=== PATIENT | female | born 1990 | race African-American/Black ===

== ENCOUNTER 2017-03-04 13:47 | Emergency (ER) | payer SELFPAY ==
[2017-03-04] MEDS ORDERED: PREDNISONE 20 MG TABLET PO ONE (15:02)
[2017-03-04] MEDS ORDERED: IPRATROPIUM/ALBUTEROL 0.5-2.5 MG/3 ML AMPUL NEB ONE (15:02)
--- NOTE | 2017-03-04 15:08 | ER Document Report ---
ED Respiratory Problem - General Chief Complaint: Shortness Of Breath Stated Complaint: DIFFICULTY BREATHING Time seen by provider: 15:03 Mode of Arrival: Ambulatory Information source: Patient Notes: 26-year-old female presents to ED for shortness of breath lungs feel tight. She has a history of asthma. Last menstrual period was 02/21/2017 TRAVEL OUTSIDE OF THE [place] IN LAST 30 DAYS: No - HPI Patient complains to provider of: Asthma, Cough, Short of breath Onset: Yesterday Duration: Continuous Initiating Event: URI Quality of pain: Achy Severity: Mild Pain Level: 2 Context: Hx asthma Cough: Nonproductive Sputum amount: None Associated symptoms: Congestion, Cough, PND, Runny nose. denies: Wheezing Similar symptoms previously: Yes Recently seen / treated by doctor: No - Related Data Allergies/Adverse Reactions: Shellfish * [Shellfish] Allergy (Intermediate, Verified 03/04/17 14:05) swelling Past Medical History - General Information source: Patient - Social History Smoking Status: Never Smoker Cigarette use (# per day): No Chew tobacco use (# tins/day): No Smoking Education Provided: No Frequency of alcohol use: None Drug Abuse: None Occupation: call center Lives with: Parents Family History: Arthritis, Hypertension, Malignancy Patient has suicidal ideation: No Patient has homicidal ideation: No Pulmonary Medical History: Reports: Hx Asthma, Hx Bronchitis, Hx Pneumonia EENT Medical History: Reports: None Neurological Medical History: Reports: Hx Migraine Endocrine Medical History: Reports: None Renal/ Medical History: Reports: None Malignancy Medical History: Reports: None GI Medical History: Reports: None Musculoskeltal Medical History: Reports None Skin Medical History: Reports Hx Eczema Psychiatric Medical History: Reports: None Traumatic Medical History: Reports: None Infectious Medical History: Reports: None Past Surgical History: Reports: Hx Oral Surgery - wisdom teeth - Immunizations Immunizations up to date: No Hx Diphtheria, Pertussis, Tetanus Vaccination: No Review of Systems - Review of Systems Constitutional: Recent illness EENT: Nose discharge, Sinus discharge Cardiovascular: No symptoms reported Respiratory: Cough, Short of breath, Wheezing, Other - States feels tight Gastrointestinal: No symptoms reported Genitourinary: No symptoms reported Female Genitourinary: No symptoms reported Musculoskeletal: No symptoms reported Skin: No symptoms reported Hematologic/Lymphatic: No symptoms reported Neurological/Psychological: No symptoms reported -: Yes All other systems reviewed and negative Physical Exam - Vital signs Vitals: Temp Pulse Resp BP Pulse Ox 98.4 F 76 16 120/86 H 98 03/04/17 14:05 03/04/17 14:05 03/04/17 14:05 03/04/17 14:05 03/04/17 14:05 Interpretation: Normal - General General appearance: Appears well, Alert - HEENT Head: Normocephalic, Atraumatic Eyes: Normal Pupils: PERRL Ears: Normal External canal: Normal Tympanic membrane: Normal Sinus: Normal Nasal: Swelling, Clear rhinorrhea Mouth/Lips: Normal Mucous membranes: Normal Pharynx: Normal Neck: Normal - Respiratory Respiratory status: No respiratory distress Chest status: Nontender Breath sounds: Normal, Nonproductive cough. No: Wheezing Chest palpation: Normal - Cardiovascular Rhythm: Regular Heart sounds: Normal auscultation Murmur: No - Abdominal Inspection: Normal Distension: No distension Bowel sounds: Normal Tenderness: Nontender Organomegaly: No organomegaly - Back Back: Normal, Nontender - Extremities General upper extremity: Normal inspection, Nontender, Normal color, Normal ROM , Normal temperature General lower extremity: Normal inspection, Nontender, Normal color, Normal ROM , Normal temperature, Normal weight bearing. No: Alexander's sign - Neurological Neuro grossly intact: Yes Cognition: Normal Orientation: AAOx4 [place] Coma Scale Eye Opening: Spontaneous [place] Coma Scale Verbal: Oriented Jazlyn Coma Scale Motor: Obeys Commands [place] Coma Scale Total: 15 Speech: Normal Motor strength normal: LUE, RUE, LLE, RLE Sensory: Normal - Psychological Associated symptoms: Normal affect, Normal mood - Skin Skin Temperature: Warm Skin Moisture: Dry Skin Color: Normal Course - Re-evaluation Re-evalutation: 03/04/17 23:22 Patient is states she felt much better after her breathing treatments and steroids patient was discharged home with prescription for steroids. - Vital Signs Vital signs: Temp Pulse Resp BP Pulse Ox 98.4 F 88 19 138/75 H 98 03/04/17 14:05 03/04/17 16:29 03/04/17 16:29 03/04/17 16:29 03/04/17 16:29 - Diagnostic Test Radiology reviewed: Image reviewed, Reports reviewed Discharge - Discharge Clinical Impression: Asthma exacerbation Condition: Stable Disposition: HOME, SELF-CARE Instructions: Family Physicians / Practices Additional Instructions: ASTHMA: You have been diagnosed as having asthma. This is a condition where there is episodic tightness in the bronchial tubes. Allergies, infections, and polluted or cold air may be contributing factors. Emergency treatment of a severe asthma attack may include adrenaline shots , or bronchodilator aerosol. You may feel lightheaded, have a decreased exercise tolerance and a rapid pulse for an hour or two. Rest and get plenty of fluids. Home treatment of asthma requires bronchodilator drugs. These can be administered by injection, inhalation, or by mouth. Antibiotics and corticosteroids may be required for some patients. You should avoid chemical fumes, dusts, pollens, and exercising in very cold or dry air. If you smoke, stop!! If you develop a fever, increased wheezing, chest pain, or severe shortness of breath, you should contact the doctor immediately. STEROID MEDICATION: You have been given an injection of or oral medicine of the cortisone/ steroid class. This medication is used to control inflammation or allergy. Piero t is usually only given for a short period of time, until the acute process subsides. There are usually no side effects from short-term use of cortisone-like medications. Some persons feel an increased sense of well-being and are not sleepy at bedtime. Long-term use of cortisone medications is best avoided, unless required for a severe condition. If your condition does not remit, or relapses after the course of corticosteroid medication, you should consult your physician. INHALED BRONCHODILATORS: You have received treatment(s) of and/or prescription for an inhaled bronchodilator -- a medication which stimulates the airways in the lung to dilate. This improves the flow of air in asthma, bronchitis, and emphysema. These medicines have some similarity to adrenaline, and can cause similar side effects: shakiness, racing heart, and a sense of nervousness. These side effects decrease with time. Contact your doctor if these side effects are severe. Do not over-use the medicine. Too-frequent use of the inhaler may make it ineffective. Call your doctor if the inhaler is not controlling your symptoms at the prescribed doses. USE OF ACETAMINOPHEN (Tylenol): Acetaminophen may be taken for pain relief or fever control. It's much safer than aspirin, offering a wider range of "safe" dosages. It is safe during . Some brand names are Tylenol, Panadol, Datril, Anacin 3, Tempra, and Liquiprin. Acetaminophen can be repeated every four hours. The following are maximum recommended dosages: WEIGHT Dose Drops Elixir Chewable( 80mg) (LBS.) drprs=droppers tsp=teaspoon 6 40 mg 0.4 ml (1/2) 6-11 80 mg 0.8 ml (full) tsp 1 tab 12-16 120 mg 1 1/2 drprs 3/4 tsp 1 1/2 tabs 17-23 160 mg 2 drprs 1 tsp 2 tabs 24-30 240 mg 3 drprs 1 1/2 tsp 3 tabs 30-35 320 mg 2 tsp 4 tabs 36-41 360 mg 2 1/4 tsp 4 1/2 tabs 42-47 400 mg 2 1/2 tsp 5 tabs 48-53 480 mg 3 tsp 6 tabs 54-59 520 mg 3 1/4 tsp 6 1/2 tabs 60-64 560 mg 3 1/2 tsp 7 tabs 65-70 600 mg 3 3/4 tsp 7 1/2 tabs 71-76 640 mg 4 tsp 8 tabs 77-82 720 mg 4 1/2 tsp 9 tabs 83-88 800 mg 5 tsp 10 tabs >89 pounds or adults 650 mg to 900 mg Acetaminophen can be repeated every four hours. Maximum dose not to exceed 4000 mg a day. These maximum recommended dosages are slightly higher than the dosages written on the product container, but these dosages are very safe and below the toxic dosage for acetaminophen. FOLLOW-UP CARE: If you have been referred to a physician for follow-up care, call the physician s office for an appointment as you were instructed or within the next two days. If you experience worsening or a significant change in your symptoms, notify the physician immediately or return to the Emergency Department at any time for re-evaluation. Prescriptions: Albuterol Sulfate [Proair HFA Inhalation Aerosol 8.5 gm MDI] 2 puff IH Q4H PRN # 1 mdi PRN Reason: Prednisone [Deltasone 20 mg Tablet] 2 tab PO DAILY 3 Days Forms: Elevated Blood Pressure, Return to Work Referrals: [facility] [Provider Group] - Follow up as needed
[2017-03-04 16:30] VITALS: BP 138/75
== END 2017-03-04 16:29 | disposition home or self-care (01) ==
LOC: ER 13:47
DX: J45.901 Unspecified asthma with (acute) exacerbation (principal); R06.02 Shortness of breath; R05 Cough; J34.89 Other specified disorders of nose and nasal sinuses; Z91.013 Allergy to seafood; Z87.01 Personal history of pneumonia (recurrent)
CPT/HCPCS: 94640; 99284; 71020; J7512; J7620

== ENCOUNTER 2017-06-05 11:42 | Emergency (ER) | payer SELFPAY ==
[2017-06-05] MEDS ORDERED: ONDANSETRON 4 MG TAB.RAPDIS PO ONE (12:32)
--- NOTE | 2017-06-05 12:32 | ER Document Report ---
ED Medical Screen (RME) - General Chief Complaint: Nausea Stated Complaint: BACK PAIN/NAUSEA Time Seen by Provider: 06/05/17 12:31 Mode of Arrival: Ambulatory Information source: Patient Notes: 26-year-old female that presents to the emergency room with a decreased appetite , queasy on the stomach with some back pains. Past medical history: Asthma, UTIs Medicines: Albuterol as needed Next normal menstrual period May 30 TRAVEL OUTSIDE OF THE [place] IN LAST 30 DAYS: No - HPI Onset: Yesterday Onset/Duration: Gradual Quality of pain: Dull Severity: Mild Pain Level: 1 Associated Symptoms: denies: Chest pain, Fever, Shortness of breath Exacerbated by: Denies Relieved by: Denies Similar symptoms previously: No Recently seen / treated by doctor: No - Related Data Smoking: Non-smoker Frequency of alcohol use: None Drug Abuse: None Allergies/Adverse Reactions: Shellfish * [Shellfish] Allergy (Intermediate, Verified 06/05/17 11:44) swelling Past Medical History - General Information source: Patient - Social History Cigarette use (# per day): No Chew tobacco use (# tins/day): No Frequency of alcohol use: None Drug Abuse: None Lives with: Family Family history: None Pulmonary Medical History: Reports: Hx Asthma, Hx Bronchitis, Hx Pneumonia Neurological Medical History: Reports: Hx Migraine Renal/ Medical History: Denies: Hx Peritoneal Dialysis Skin Medical History: Reports Hx Eczema Past Surgical History: Reports: Hx Oral Surgery - wisdom teeth - Immunizations Immunizations up to date: No Hx Diphtheria, Pertussis, Tetanus Vaccination: No Review of Systems - Review of Systems Constitutional: Weakness. denies: Chills, Fever EENT: No symptoms reported Cardiovascular: No symptoms reported Respiratory: No symptoms reported Gastrointestinal: See HPI Genitourinary: No symptoms reported Female Genitourinary: No symptoms reported Musculoskeletal: No symptoms reported Skin: No symptoms reported Hematologic/Lymphatic: No symptoms reported Neurological/Psychological: See HPI Physical Exam - Vital signs Vitals: Temp Pulse Resp BP Pulse Ox 98.5 F 72 16 137/84 H 97 06/05/17 11:44 06/05/17 11:44 06/05/17 11:44 06/05/17 11:44 06/05/17 11:44 Notes: Physical exam: GENERAL: 26-year-old female, alert and oriented 3, no acute distress. HEAD: Atraumatic, normocephalic. EYES: Pupils equal round and reactive to light, extraocular movements intact, sclera anicteric, conjunctiva are normal. ENT: TMs normal, nares patent, oropharynx clear without exudates. Moist mucous membranes. NECK: Normal range of motion, supple without lymphadenopathy or JVD. LUNGS: Breath sounds clear to auscultation bilaterally and equal. No wheezes rales or rhonchi. HEART: Regular rate and rhythm without murmurs, rubs or gallops. ABDOMEN: Soft, normoactive bowel sounds. No tenderness to palpation. No guarding, no rebound. No masses appreciated. EXTREMITIES: Normal range of motion, no pitting or edema. No clubbing or cyanosis. NEUROLOGICAL: Cranial nerves II through XII grossly intact. Normal speech, normal gait. PSYCH: Normal mood, normal affect. SKIN: Warm, Dry, normal turgor, no rashes or lesions noted. Course - Vital Signs Vital signs: Temp Pulse Resp BP Pulse Ox 98.1 F 78 18 128/78 H 99 06/05/17 14:12 06/05/17 14:12 06/05/17 14:12 06/05/17 14:12 06/05/17 14:12 - Laboratory Result Diagrams: 06/05/17 12:39 06/05/17 12:39 Laboratory results interpreted by me: 06/05/17 06/05/17 12:39 12:39 MCH 26.9 L Seg Neutrophils % 78.4 H Urine Ketones 20 H Doctor's Discharge - Discharge Clinical Impression: Nausea Condition: Stable Disposition: HOME, SELF-CARE Additional Instructions: Please note: Many disease processes do evolve over time and the ER visit offers only a brief assessment. This is why it is important that you: 1. Follow up with her doctor for ongoing symptoms within the next week. 2. Return to the ER at once if your symptoms worsen, are not improving or if you are unable to get into your physician's office. When you call your physician's office, tell them that you were evaluated in the ER and the ER physician recommended that you are reevaluated in the office in the time span mentioned above. If given a copy of any lab tests or radiology reports, bring them with you when you see your physician. Specific signs to look out for: Worsening nausea, abdominal pain, fever. Phenergan for nausea as needed. Prescriptions: Promethazine HCl [Phenergan 25 mg Tablet] 25 mg PO Q6H PRN #15 tablet PRN Reason: Forms: Return to Work Referrals: [facility] [Provider Group] - Follow up as needed (The number for the free General medicine clinic.)
[2017-06-05 12:59] LABS: ABSOLUTE LYMPHOCYTES (AUTO) 1.2 10^3/uL (0.5-4.7); ABSOLUTE MONOCYTES (AUTO) 0.4 10^3/uL (0.1-1.4); ABSOLUTE NEUT (AUTO) 5.8 10^3/uL (1.7-8.2); BASOPHILS % (AUTO) 0.5 % (0-2); EOSINOPHILS % (AUTO) 0.6 % (0-6); HEMATOCRIT 41.2 % (36.0-47.0); HEMOGLOBIN 13.3 g/dL (12.0-15.5); HGB HCT DIFFERENCE -1.3; LYMPHOCYTES % (AUTO) 15.6 % (13-45); MEAN CORPUSCULAR HEMOGLOBIN 26.9 pg (27.0-33.4); MEAN CORPUSCULAR HGB CONC 32.2 g/dL (32.0-36.0); MEAN CORPUSCULAR VOLUME 83 fl (80-97); MONOCYTES % (AUTO) 4.9 % (3-13); RED BLOOD COUNT 4.94 10^6/uL (3.72-5.28); RED CELL DISTRIBUTION WIDTH 13.8 % (11.5-14.0); SEGMENTED NEUTROPHILS % (AUTO) 78.4 % (42-78); WHITE BLOOD COUNT 7.5 10^3/uL (4.0-10.5)
[2017-06-05 13:15] LABS: APPEARANCE,URINE SLIGHTLY-CLOUDY; BILIRUBIN,URINE NEGATIVE (NEGATIVE); GLUCOSE, URINE NEGATIVE (NEGATIVE); KETONES,URINE 20 mg/dL (NEGATIVE); LEUKOCYTE ESTERASE,URINE NEGATIVE (NEGATIVE); NITRITE,URINE NEGATIVE (NEGATIVE); PROTEIN,URINE NEGATIVE (NEGATIVE); UROBILINOGEN,URINE NEGATIVE mg/dL (<2.0)
[2017-06-05 13:20] LABS: ALBUMIN 4.2 g/dL (3.5-5.0); ANION GAP 10 (5-19); ASPARTATE AMINO TRANSFERASE 20 U/L (14-36); BLOOD UREA NITROGEN 8 mg/dL (7-20); CALCIUM 9.4 mg/dL (8.4-10.2); CARBON DIOXIDE 27 mmol/L (22-30); CHLORIDE 105 mmol/L (98-107); CREATININE RESULT 0.66 mg/dL (0.52-1.25); GLUCOSE 87 mg/dL (75-110); POTASSIUM 3.9 mmol/L (3.6-5.0); SODIUM 141.5 mmol/L (137-145)
[2017-06-05 13:21] LABS: ALANINE AMINOTRANSFERASE 24 U/L (9-52); ALKALINE PHOSPHATASE 64 U/L (38-126); BILIRUBIN,DIRECT 0.3 mg/dL (0.0-0.4); BILIRUBIN,TOTAL 0.6 mg/dL (0.2-1.3); TOTAL PROTEIN 7.8 g/dL (6.3-8.2)
[2017-06-05 14:13] VITALS: BP 128/78
== END 2017-06-05 14:12 | disposition home or self-care (01) ==
LOC: ER 11:42
DX: R11.0 Nausea (principal); R63.0 Anorexia; M54.9 Dorsalgia, unspecified; R53.1 Weakness; J45.909 Unspecified asthma, uncomplicated; Z87.440 Personal history of urinary (tract) infections; Z91.013 Allergy to seafood
CPT/HCPCS: 99283; 36415; 84702; 85025; 80053; 81001; S0119

== ENCOUNTER 2017-10-06 07:31 | Emergency (ER) | payer OTHER ==
[2017-10-06] MEDS ORDERED: KETOROLAC TROMETHAMINE INJ/PF 30 MG/1 ML SDV IV ONE (09:16)
--- NOTE | 2017-10-06 10:14 | ER Document Report ---
ED Flu Like - General Chief Complaint: Flu Symptoms Stated Complaint: BODY PAIN Time Seen by Provider: 10/06/17 08:25 Mode of Arrival: Ambulatory Information source: Patient Notes: Patient is a 27-year-old female who presents to the ER today for 1 day of body aches, cough, abdominal cramping, nausea and a few episodes of vomiting. Patient admits to back pain that she woke up with this morning in the middle of her back. She states that it is achy and not tender to touch. She denies any fever but admits to chills. She denies any diarrhea, sore throat. TRAVEL OUTSIDE OF THE [place] IN LAST 30 DAYS: No - Related Data Allergies/Adverse Reactions: Shellfish * [Shellfish] Allergy (Intermediate, Verified 10/06/17 08:19) swelling Past Medical History - General Information source: Patient - Social History Smoking Status: Never Smoker Chew tobacco use (# tins/day): No Frequency of alcohol use: None Drug Abuse: None Family History: Arthritis, Hypertension, Malignancy Patient has suicidal ideation: No Patient has homicidal ideation: No Pulmonary Medical History: Reports: Hx Asthma, Hx Bronchitis, Hx Pneumonia Neurological Medical History: Reports: Hx Migraine Renal/ Medical History: Denies: Hx Peritoneal Dialysis Skin Medical History: Reports Hx Eczema Past Surgical History: Reports: Hx Oral Surgery - wisdom teeth - Immunizations Immunizations up to date: No Hx Diphtheria, Pertussis, Tetanus Vaccination: No Review of Systems - Review of Systems Constitutional: See HPI EENT: No symptoms reported Cardiovascular: No symptoms reported Respiratory: See HPI Gastrointestinal: See HPI Genitourinary: No symptoms reported Female Genitourinary: No symptoms reported Musculoskeletal: No symptoms reported Skin: No symptoms reported Hematologic/Lymphatic: No symptoms reported Neurological/Psychological: No symptoms reported Physical Exam - Vital signs Vitals: Temp Pulse Resp BP Pulse Ox 98.9 F 98 18 121/83 96 10/06/17 07:37 10/06/17 07:37 10/06/17 07:37 10/06/17 07:37 10/06/17 07:37 - Notes Notes: PHYSICAL EXAMINATION: GENERAL: Mildly ill-appearing, but in no acute distress. HEAD: Atraumatic, normocephalic. EYES: Pupils equal round and reactive to light, extraocular movements intact, sclera anicteric, conjunctiva are normal. ENT: ear canals without erythema or foreign body, TMs pearly angelo with good bony landmarks, nares patent, oropharynx clear without exudates. Moist mucous membranes. Airway patent NECK: Normal range of motion, supple without lymphadenopathy LUNGS: CTAB and equal. No wheezes rales or rhonchi. HEART: Regular rate and rhythm without murmurs ABDOMEN: Soft, no tenderness. No guarding, no rebound BACK: no vertebral tenderness, normal ROM GI/: no CVA tenderness EXTREMITIES: Normal range of motion, no pitting edema. No cyanosis. NEUROLOGICAL: Cranial nerves grossly intact. Normal sensory/motor exams. PSYCH: Normal mood, normal affect. SKIN: Warm, Dry, normal turgor, no rashes or lesions noted Course - Re-evaluation Re-evalutation: 10/06/17 10:12 Flu and strep are negative today. Patient likely has a viral syndrome. I will send her home with anti-inflammatories for her body aches, cough medication and nausea medication for her nausea and vomiting. - Vital Signs Vital signs: Temp Pulse Resp BP Pulse Ox 98.9 F 98 18 121/83 96 10/06/17 07:37 10/06/17 07:37 10/06/17 07:37 10/06/17 07:37 10/06/17 07:37 Discharge - Discharge Clinical Impression: Viral syndrome, Cough, Body aches Condition: Stable Disposition: HOME, SELF-CARE Instructions: Viral Syndrome ([facility]) Additional Instructions: Return immediately for any new or worsening symptoms. Follow up with primary care provider, call tomorrow to make followup appointment. Drink plenty of fluids. Prescriptions: D-Methorphan Hb/Prometh HCl [Promethazine-Dm Syrup] 5 ml PO Q8 PRN #120 ml PRN Reason: Ibuprofen [Motrin 800 mg Tablet] 800 mg PO Q8H PRN #30 tab PRN Reason: Forms: Return to Work
[2017-10-06 10:22] VITALS: BP 138/87
== END 2017-10-06 10:22 | disposition home or self-care (01) ==
LOC: ER 07:31
DX: B34.9 Viral infection, unspecified (principal); R05 Cough; R10.9 Unspecified abdominal pain; M54.9 Dorsalgia, unspecified; R11.2 Nausea with vomiting, unspecified; R68.83 Chills (without fever); J45.909 Unspecified asthma, uncomplicated; Z91.013 Allergy to seafood
CPT/HCPCS: 99283; 96374; 87070; 87880; 87804; J1885

== ENCOUNTER 2018-02-16 19:15 | Emergency (ER) | payer SELFPAY ==
--- NOTE | 2018-02-16 21:49 | ER Document Report ---
ED Respiratory Problem - General Chief Complaint: Congestion Stated Complaint: SORE THROAT Time Seen by Provider: 02/16/18 21:16 Mode of Arrival: Ambulatory Information source: Patient TRAVEL OUTSIDE OF THE [place] IN LAST 30 DAYS: No - HPI Patient complains to provider of: Cough, Other - sore throat Onset: Other - 2 days ago Notes: Patient is here with complaints of sore throat. She states the sore throat started Wednesday. The sore throat seems to have improved some but now she has nasal congestion and cough. She has some body aches. She denies any fever. She denies any nausea, vomiting, diarrhea. No chest pain or shortness of breath. No rash. No abdominal pain. She denies any dysuria or hematuria. States she is around a lot of people think she may have potentially caught something from someone. She has a history of asthma but denies any other chronic medical conditions. She is a non-smoker. Nothing makes her symptoms better or worse. She denies any other complaints at this time. - Related Data Allergies/Adverse Reactions: Shellfish * [Shellfish] Allergy (Intermediate, Verified 02/16/18 21:08) swelling Past Medical History - Social History Smoking Status: Never Smoker Chew tobacco use (# tins/day): No Frequency of alcohol use: None Drug Abuse: None Family History: Arthritis, Hypertension, Malignancy Patient has suicidal ideation: No Patient has homicidal ideation: No Pulmonary Medical History: Reports: Hx Asthma, Hx Bronchitis, Hx Pneumonia Neurological Medical History: Reports: Hx Migraine Renal/ Medical History: Denies: Hx Peritoneal Dialysis Skin Medical History: Reports Hx Eczema Past Surgical History: Reports: Hx Oral Surgery - wisdom teeth - Immunizations Immunizations up to date: No Hx Diphtheria, Pertussis, Tetanus Vaccination: No Review of Systems - Review of Systems -: Yes All other systems reviewed and negative Physical Exam - Vital signs Vitals: Temp Pulse Resp BP Pulse Ox 99.1 F 98 20 130/81 H 97 02/16/18 19:24 02/16/18 19:24 02/16/18 19:24 02/16/18 19:24 02/16/18 19:24 - Notes Notes: GENERAL: alert, cooperative, nontoxic, no distress. HEAD: normocephalic, atraumatic EYES: conjunctiva pink without discharge, no external redness or swelling. EARS: no external swelling, no external redness, no mastoid redness, swelling, tenderness. Ear canals are clear without swelling or drainage. TMs pearly guardado , no redness, no bulging, normal landmarks, no perforation. NOSE: atraumatic, no external swelling. clear rhinorrhea noted. MOUTH/THROAT: mucous membranes moist and pink, posterior pharynx without erythema, swelling, exudate. No trismus or drooling. NECK: soft, supple, full range of motion, no meningismus. CHEST: no distress, lungs clear and equal throughout. No wheezing, rales, rhonchi. CARDIAC: regular rate and rhythm, no murmur, normal capillary refill, normal pulses. No peripheral edema noted. BACK: full range of motion, no CVA tenderness. EXTREMITIES: full range of motion of all extremities. No redness, no swelling. NEURO: alert and oriented A&O3, no focal deficits, full range of motion of all extremities. PYSCH: appropriate mood, affect. Patient is cooperative. SKIN: pink, warm, dry, no rash. Course - Re-evaluation Re-evalutation: 02/16/18 21:46 Patient is nontoxic appearing stable vitals. Patient is here with complaints of sore throat, runny nose, nasal congestion, cough and body aches. No fever. She is a completely benign exam. She is in no distress. Lungs are clear. Throat exam is unremarkable. No sign of peritonsillar abscess. Rapid strep is negative. This point the patient can be discharged home with symptomatic treatment. I will write a prescription for Flonase and Naprosyn as well as some Claritin-D. Follow-up if not improving in the next 5 days, sooner for worsening symptoms, high fever, persistent vomiting, difficulty breathing, or for any further concerns. The patient is noted to have elevated blood pressure during today's emergency department visit. The patient was informed of this finding. The patient was instructed that this may be related to pre-hypertension and requires further evaluation with a primary care provider. The patient has no hypertensive symptoms at this time. The patient's emergency department workup and current diagnosis were explained to the patient and or family. Follow-up instructions were provided. Medications if prescribed were discussed. Instructions for when to return to the emergency department including specific worrisome symptoms were discussed with the patient and/or family. - Vital Signs Vital signs: Temp Pulse Resp BP Pulse Ox 99.1 F 98 20 130/81 H 97 02/16/18 19:24 02/16/18 19:24 02/16/18 19:24 02/16/18 19:24 02/16/18 19:24 Discharge - Discharge Clinical Impression: URI (upper respiratory infection) Qualifiers: URI type: unspecified viral URI Qualified Code(s): J06.9 - Acute upper respiratory infection, unspecified Condition: Stable Disposition: HOME, SELF-CARE Instructions: Upper Respiratory Illness ([facility]) Additional Instructions: Take medications as prescribed. Tylenol as needed for pain or fever. Follow- up with your doctor if not better in 5 days, sooner for worsening symptoms, high fever, difficulty breathing or swallowing, persistent vomiting, or for any further concerns. Your blood pressure was elevated during today's visit. Have this rechecked with your doctor. Prescriptions: Desloratadine/Pseudoephedrine [Clarinex-D 12 Hour Tablet] 1 each PO BID PRN #14 tbmp.12hr PRN Reason: Fluticasone Propionate [Flonase Nasal [place] 50 Mcg/[place] 16 gm] 1 spray NASL Q12 #1 inhaler Naproxen [Naprosyn] 500 mg PO BID #20 tablet Forms: Elevated Blood Pressure, Return to Work Referrals: [facility] [Provider Group] - Follow up as needed
[2018-02-16 22:00] VITALS: BP 127/78
== END 2018-02-16 21:56 | disposition home or self-care (01) ==
LOC: ER 19:15
DX: J06.9 Acute upper respiratory infection, unspecified (principal); B97.89 Other viral agents as the cause of diseases classified elsewhere; J02.9 Acute pharyngitis, unspecified; R09.81 Nasal congestion; J34.89 Other specified disorders of nose and nasal sinuses; R05 Cough; R03.0 Elevated blood-pressure reading, without diagnosis of hypertension; J45.909 Unspecified asthma, uncomplicated; Z91.013 Allergy to seafood; Z87.01 Personal history of pneumonia (recurrent)
CPT/HCPCS: 87070; 87880; 99283

== ENCOUNTER 2018-08-03 10:37 | Emergency (ER) | payer SELFPAY ==
[2018-08-03 10:42] VITALS: BP 137/87
[2018-08-03] MEDS ORDERED: TETRACAINE HCL 0.5% OPH SOLN 4 ML OS ONE (11:04)
[2018-08-03] MEDS ORDERED: POLYMYXIN B SULFATE/TMP OPH SOLN (10 ML/ER DISP) OD PRN (11:26)
--- NOTE | 2018-08-03 11:29 | ER Document Report ---
ED General - General Chief Complaint: Eye Problem Stated Complaint: EYE SWELLING Time Seen by Provider: 08/03/18 11:01 TRAVEL OUTSIDE OF THE U.S. IN LAST 30 DAYS: No - HPI Patient complains to provider of: Right eye swelling Notes: Patient coming in for evaluation of swelling of the right upper eyelid lateral portion ongoing for approximate last 48 hours. Patient thinks he is developing a stye. Patient does not wear glasses or contacts there is no visual changes. States slight increase in drainage of her eye this morning however I was not matted closed. Denies any recent illnesses no fevers chills nausea vomiting diarrhea no trauma to the eye. - Related Data Allergies/Adverse Reactions: Shellfish * [Shellfish] Allergy (Intermediate, Verified 08/03/18 10:37) swelling Past Medical History - Social History Smoking Status: Never Smoker Frequency of alcohol use: None Drug Abuse: None Family History: Arthritis, Hypertension, Malignancy Patient has suicidal ideation: No Patient has homicidal ideation: No Pulmonary Medical History: Reports: Hx Asthma, Hx Bronchitis, Hx Pneumonia Neurological Medical History: Reports: Hx Migraine Renal/ Medical History: Denies: Hx Peritoneal Dialysis Skin Medical History: Reports Hx Eczema Past Surgical History: Reports: Hx Oral Surgery - wisdom teeth - Immunizations Immunizations up to date: No Hx Diphtheria, Pertussis, Tetanus Vaccination: No Review of Systems - Review of Systems Constitutional: No symptoms reported EENT: Other - Right upper eyelid Cardiovascular: No symptoms reported Respiratory: No symptoms reported Gastrointestinal: No symptoms reported Genitourinary: No symptoms reported Female Genitourinary: No symptoms reported Musculoskeletal: No symptoms reported Skin: No symptoms reported Hematologic/Lymphatic: No symptoms reported Neurological/Psychological: No symptoms reported Physical Exam - Vital signs Vitals: Temp Pulse Resp BP Pulse Ox 98.2 F 75 14 137/87 H 98 08/03/18 10:41 08/03/18 10:41 08/03/18 10:41 08/03/18 10:41 08/03/18 10:41 Interpretation: Normal - General General appearance: Appears well, Alert - HEENT Head: Normocephalic, Atraumatic Eyes: Normal Conjunctiva: Normal Cornea: Normal. No: Flourescein stain uptake Extraocular movements intact: Yes Eyelashes: Normal Pupils: PERRL Lids everted for exam: right: Stye - Right lateral upper lid - Respiratory Respiratory status: No respiratory distress Chest status: Nontender Breath sounds: Normal Chest palpation: Normal - Cardiovascular Rhythm: Regular Heart sounds: Normal auscultation Murmur: No - Abdominal Inspection: Normal Distension: No distension Bowel sounds: Normal Tenderness: Nontender Organomegaly: No organomegaly - Back Back: Normal, Nontender - Extremities General upper extremity: Normal inspection, Nontender, Normal color, Normal ROM , Normal temperature General lower extremity: Normal inspection, Nontender, Normal color, Normal ROM , Normal temperature, Normal weight bearing. No: Alexander's sign - Neurological Neuro grossly intact: Yes Cognition: Normal Orientation: AAOx4 Jazlyn Coma Scale Eye Opening: Spontaneous Jazlyn Coma Scale Verbal: Oriented [place] Coma Scale Motor: Obeys Commands [place] Coma Scale Total: 15 Speech: Normal Motor strength normal: LUE, RUE, LLE, RLE Sensory: Normal - Psychological Associated symptoms: Normal affect, Normal mood - Skin Skin Temperature: Warm Skin Moisture: Dry Skin Color: Normal Course - Re-evaluation Re-evalutation: 08/03/18 20:06 Forcing was instilled in the right eye with no uptake. Patient otherwise had normal ocular examination so for finding of a stye. Will start the patient on Polytrim for hopeful resolution of the stye also recommended warm compresses return if symptoms worsen. Patient states understanding discharged home - Vital Signs Vital signs: Temp Pulse Resp BP Pulse Ox 98.2 F 75 14 137/87 H 98 08/03/18 10:41 08/03/18 10:41 08/03/18 10:41 08/03/18 10:41 08/03/18 10:41 Discharge - Discharge Clinical Impression: Sty, internal Qualifiers: Laterality: right Eyelid: upper Qualified Code(s): H00.021 - Hordeolum internum right upper eyelid Condition: Good Disposition: HOME, SELF-CARE Instructions: Eyedrop Use ([facility]), Sty ([facility]) Additional Instructions: Evaluation today does reveal a stye formation of the upper eyelid. You may use the eyedrops provided 1-2 drops 4 times a day for the next 7 days this may help in resolution of this time. We also recommend warm compresses. Return to ER for any concerning issues.
== END 2018-08-03 11:33 | disposition home or self-care (01) ==
LOC: ER 10:37
DX: H00.021 Hordeolum internum right upper eyelid (principal)
CPT/HCPCS: 99283; J3490

== ENCOUNTER 2019-03-01 18:14 | Emergency (ER) | payer SELFPAY ==
[2019-03-01] MEDS ORDERED: NORMAL SALINE 1000 ML 1,000 ML IV ONE (18:43)
[2019-03-01] MEDS ORDERED: ONDANSETRON HCL INJ/PF 4 MG/2 ML SDV IV ONE (18:43)
--- NOTE | 2019-03-01 19:12 | ER Document Report ---
ED Medical Screen (RME) - General Chief Complaint: Vomiting Stated Complaint: VOMITING Time Seen by Provider: 03/01/19 19:06 TRAVEL OUTSIDE OF THE U.S. IN LAST 30 DAYS: No - HPI Notes: 03/01/19 19:10 Patient is a 28-year-old female with no significant past medical history aside from asthma who presents to the emergency department complaining of nausea and vomiting x2 today with the last episode prior to arrival and having soft/loose stool over the past week. Patient states that she is not having any watery diarrhea. She has not been an antibiotics recently. She has not been able to eat or drink today because of her nausea. Patient states that she is urinating normally and is currently on her menstrual period. Denies any headache, fever, URI, chest pain, palpitations, syncope, cough, shortness of breath, wheeze, dyspnea, abdominal pain, diarrhea, urinary retention, dysuria, hematuria, back pain, or rash. I have treated and performed a rapid initial assessment of this patient. A comprehensive ED assessment and evaluation of the patient, analysis of test results and completion of medical decision making process will be conducted by additional ED providers. PHYSICAL EXAMINATION: Throat: Oropharynx without erythema, 2+ hypertrophy. No exudates. GENERAL: Well-appearing, well-nourished and in no acute distress. A&Ox4. Answers questions appropriately. LUNGS: Breath sounds clear to auscultation bilaterally and equal. No wheezes rales or rhonchi. HEART: Regular rate and rhythm without murmurs, rubs, gallops. ABDOMEN: Soft, nondistended abdomen. No guarding, no rebound. Normal bowel sounds present. No CVA tenderness bilaterally. Nontender - Related Data Allergies/Adverse Reactions: Shellfish * [Shellfish] Allergy (Intermediate, Verified 03/01/19 18:15) swelling Past Medical History - Social History Family history: None Pulmonary Medical History: Reports: Hx Asthma, Hx Bronchitis, Hx Pneumonia Neurological Medical History: Reports: Hx Migraine Renal/ Medical History: Denies: Hx Peritoneal Dialysis Skin Medical History: Reports Hx Eczema Past Surgical History: Reports: Hx Oral Surgery - wisdom teeth - Immunizations Immunizations up to date: No Hx Diphtheria, Pertussis, Tetanus Vaccination: No Physical Exam - Vital signs Vitals: Temp Pulse Resp BP Pulse Ox 99 F 82 18 145/92 H 95 03/01/19 18:19 04/03/19 18:19 03/01/19 18:19 03/01/19 18:19 03/01/19 18:19 Course - Vital Signs Vital signs: Temp Pulse Resp BP Pulse Ox 99 F 82 18 145/92 H 95 03/01/19 18:19 03/01/19 18:19 03/01/19 18:19 03/01/19 18:19 03/01/19 18:19
[2019-03-01 19:44] LABS: ABSOLUTE BASOPHILS # (AUTO) 0.1 10^3/uL (0.0-0.2); ABSOLUTE EOSINOPHILS # (AUTO) 0.1 10^3/uL (0.0-0.6); ABSOLUTE MONOCYTES (AUTO) 0.5 10^3/uL (0.1-1.4); ABSOLUTE NEUT (AUTO) 6.7 10^3/uL (1.7-8.2); BASOPHILS % (AUTO) 1.1 % (0-2); EOSINOPHILS % (AUTO) 1.4 % (0-6); HEMATOCRIT 39.4 % (36.0-47.0); HEMOGLOBIN 13.3 g/dL (12.0-15.5); LYMPHOCYTES % (AUTO) 21.6 % (13-45); MEAN CORPUSCULAR HEMOGLOBIN 27.8 pg (27.0-33.4); MEAN CORPUSCULAR HGB CONC 33.8 g/dL (32.0-36.0); MEAN CORPUSCULAR VOLUME 82 fl (80-97); MONOCYTES % (AUTO) 5.7 % (3-13); PLATELET COUNT 379 10^3/uL (150-450); RED BLOOD COUNT 4.79 10^6/uL (3.72-5.28); RED CELL DISTRIBUTION WIDTH 13.6 % (11.5-14.0); SEGMENTED NEUTROPHILS % (AUTO) 70.2 % (42-78); TOTAL CELLS COUNTED % (AUTO) 100 %; WHITE BLOOD COUNT 9.5 10^3/uL (4.0-10.5)
[2019-03-01 19:52] LABS: APPEARANCE,URINE CLOUDY; BILIRUBIN,URINE NEGATIVE (NEGATIVE); COLOR,URINE AMBER; GLUCOSE, URINE NEGATIVE (NEGATIVE); KETONES,URINE NEGATIVE (NEGATIVE); LEUKOCYTE ESTERASE,URINE NEGATIVE (NEGATIVE); NITRITE,URINE NEGATIVE (NEGATIVE); PROTEIN,URINE 100 mg/dL (NEGATIVE); URINE SPECIFIC GRAVITY 1.023
[2019-03-01 20:07] LABS: ALANINE AMINOTRANSFERASE 15 U/L (9-52); ALBUMIN 4.2 g/dL (3.5-5.0); ALKALINE PHOSPHATASE 83 U/L (38-126); ANION GAP 7 (5-19); ASPARTATE AMINO TRANSFERASE 24 U/L (14-36); BILIRUBIN,DIRECT 0.3 mg/dL (0.0-0.4); BILIRUBIN,TOTAL 0.4 mg/dL (0.2-1.3); BLOOD UREA NITROGEN 10 mg/dL (7-20); CALCIUM 9.9 mg/dL (8.4-10.2); CARBON DIOXIDE 29 mmol/L (22-30); CHLORIDE 107 mmol/L (98-107); GLUCOSE 89 mg/dL (75-110); LIPASE 78.5 U/L (23-300); POTASSIUM 3.8 mmol/L (3.6-5.0); SODIUM 142.7 mmol/L (137-145); TOTAL PROTEIN 7.8 g/dL (6.3-8.2)
--- NOTE | 2019-03-01 20:43 | ER Document Report ---
ED General - General Chief Complaint: Vomiting Stated Complaint: VOMITING Time Seen by Provider: 03/01/19 19:06 Mode of Arrival: Ambulatory Information source: Patient TRAVEL OUTSIDE OF THE [place]. IN LAST 30 DAYS: No - HPI Patient complains to provider of: Sore throat, emesis, body aches Onset: Yesterday Onset/Duration: Sudden Severity: Mild Pain Level: 2 Associated symptoms: None Exacerbated by: Denies Relieved by: Denies Similar symptoms previously: No Recently seen / treated by doctor: No Notes: 28-year-old -[place] female presenting with sore throat started yesterday and now throwing up today, and now having body aches. No reported fevers or chills. No diarrhea. Patient has no chronic medical problems. - Related Data Allergies/Adverse Reactions: Shellfish * [Shellfish] Allergy (Intermediate, Verified 03/01/19 18:15) swelling Past Medical History - General Information source: Patient - Social History Smoking Status: Never Smoker Family History: Reviewed & Not Pertinent, Arthritis, Hypertension, Malignancy Patient has suicidal ideation: No Patient has homicidal ideation: No Pulmonary Medical History: Reports: Hx Asthma, Hx Bronchitis, Hx Pneumonia Neurological Medical History: Reports: Hx Migraine Renal/ Medical History: Denies: Hx Peritoneal Dialysis Skin Medical History: Reports Hx Eczema Past Surgical History: Reports: Hx Oral Surgery - wisdom teeth - Immunizations Immunizations up to date: No Hx Diphtheria, Pertussis, Tetanus Vaccination: No Review of Systems - Review of Systems Notes: Constitutional: No fevers. No chills. Positive malaise EENT: No eye redness. No eye pain. No ear pain. + sore throat. Cardiovascular: No chest pain. No palpitations. Respiratory: No cough. No shortness of breath. No respiratory distress. Gastrointestinal: No abdominal pain. No nausea, vomiting, or diarrhea. Genitourinary: Atraumatic. No lesions. No pain. No discharge. Musculoskeletal: Atraumatic. No swelling. No deformities. Skin: No rash or lesions. Lymphatic: No swollen lymph nodes. Neurologic: No headache. No syncope. Psychiatric: No suicidal or homicidal ideation. Physical Exam - Vital signs Vitals: Temp Pulse Resp BP Pulse Ox 99 F 82 18 145/92 H 95 03/01/19 18:19 03/01/19 18:19 03/01/19 18:19 03/01/19 18:19 03/01/19 18:19 - Notes Notes: General: Well-developed, well-nourished. In no acute distress. Non-toxic appearing. Cardiac: Well-perfused. Regular rate and rhythm. No murmurs, rubs, or gallops. Pulmonary: No respiratory distress. No cyanosis. Bilateral lung cantrell are clear to auscultation. Abdominal: Non-distended. Non-rigid. Bowels sounds are present in all four quadrants. No guarding or rebound. HEENT: Head is atraumatic. Conjunctivae not reddened. No tearing. PERRL. EOMI. Orbits atraumatic. No periorbital swelling or erythema. Oropharynx is without erythema, swelling, or exudates. Neck: Supple. No adenopathy. No meningismus. Dermatologic: Warm with good turgor. No rash. Atraumatic. Chest: Atraumatic. No chest wall tenderness to palpation. Musculoskeletal: Moves all extremities well. No range of motion deficits. no muscular or joint tenderness. No paraspinal muscle tenderness. no midline spinal tenderness or step-off. Genitourinary: Examination deferred Neurologic: No gross neurologic deficits. Psychiatric: Normal mood. Course - Re-evaluation Re-evalutation: 03/01/19 20:44 Probably viral in nature. Will check a flu, strep, and mono. Fluids been given antiemetics given. Will wait to see with her labs show. Suspect normal lab work. 03/01/19 21:51 Lab work all looks pretty normal. No strep, mono, or flu given onset of symptoms most likely viral in nature. Will write some Reglan for her to take for her nausea and I informed her to treat this like she would the flu getting plenty of rest, pushing hydration and treating symptoms. - Vital Signs Vital signs: Temp Pulse Resp BP Pulse Ox 99 F 82 18 145/92 H 95 03/01/19 18:19 03/01/19 18:19 03/01/19 18:19 03/01/19 18:19 03/01/19 18:19 - Laboratory Result Diagrams: 03/01/19 19:13 03/01/19 19:13 Laboratory results interpreted by me: 03/01/19 19:13 Urine Protein 100 H Urine Blood LARGE H Urine Urobilinogen 2.0 H Urine Ascorbic Acid 20 H Discharge - Discharge Clinical Impression: Viral syndrome Nausea and vomiting Qualifiers: Vomiting type: unspecified Vomiting Intractability: unspecified Qualified Code(s): R11.2 - Nausea with vomiting, unspecified Instructions: Antinausea Medication ([facility]), Reglan ([facility]), Intravenous (IV) Fluids ([facility]), Viral Syndrome ([facility]) Prescriptions: Metoclopramide HCl [Reglan 10 mg Tablet] 10 mg PO Q6HP PRN #12 tablet PRN Reason: Referrals: [facility] [Provider Group] - Follow up tomorrow
[2019-03-01 21:15] LABS: A TYPE INFLUENZA AG NEGATIVE (NEGATIVE); B INFLUENZA AG NEGATIVE (NEGATIVE)
[2019-03-01 23:08] VITALS: BP 125/93
== END 2019-03-01 23:10 | disposition home or self-care (01) ==
LOC: ER 18:14
DX: R11.2 Nausea with vomiting, unspecified (principal); B34.9 Viral infection, unspecified; J02.9 Acute pharyngitis, unspecified; Z91.013 Allergy to seafood; J45.909 Unspecified asthma, uncomplicated
CPT/HCPCS: 99284; 96361; 96374; 36415; 87070; 87086; 87880; 83690; 85025; 81025; 86308; 80053; 81001; 87804; J2405; J7030

== ENCOUNTER 2020-09-01 09:42 | Emergency (ER) | payer OTHER ==
[2020-09-01 10:02] VITALS: BP 132/88
[2020-09-01] MEDS ORDERED: CLINDAMYCIN HCL 150 MG CAPSULE PO ONE (10:28)
[2020-09-01] MEDS ORDERED: IBUPROFEN 800 MG TABLET PO ONE (10:28)
--- NOTE | 2020-09-01 10:28 | ER Document Report ---
ED Medical Screen (RME) - General Chief Complaint: Lip Injury Stated Complaint: LIP PAIN,SWELLING Time Seen by Provider: 09/01/20 10:16 Mode of Arrival: Ambulatory Information source: Patient Notes: 29-year-old female presented to ED for swollen lip that started on Wednesday. She states she did not eat anything different has not done anything different has not had an accident. I consulted Dr. Mccann who stated he thought it was a cellulitis. He does have a very crooked misaligned teeth in the area that her lip is the most swollen. There is some swelling to the gum around tooth #23-20. He recommended clindamycin and ibuprofen. We will give a dose of each and sent her home with a prescription. Also gave her instructions on salt and soda gargles and to follow-up with dentist promptly. TRAVEL OUTSIDE OF THE U.S. IN LAST 30 DAYS: No - HPI Onset: Other - Wednesday Onset/Duration: Gradual Quality of pain: Achy Severity: Mild Pain Level: 1 Associated Symptoms: Other - Swelling to the bottom lip swelling around the teeth #20 23 Exacerbated by: Denies Relieved by: Denies Similar symptoms previously: Yes Recently seen / treated by doctor: Yes - Related Data Smoking: Non-smoker Frequency of alcohol use: None Drug Abuse: None Allergies/Adverse Reactions: Shellfish * [Shellfish] Allergy (Intermediate, Verified 03/01/19 18:15) swelling Past Medical History - General Information source: Patient - Social History Cigarette use (# per day): No Frequency of alcohol use: None Drug Abuse: None Family history: Reviewed & Not Pertinent - Past Medical History Cardiac Medical History: Reports: None Pulmonary Medical History: Reports: Hx Asthma, Hx Bronchitis, Hx Pneumonia EENT Medical History: Reports: None Neurological Medical History: Reports: Hx Migraine Endocrine Medical History: Reports: None Renal/ Medical History: Reports: None Malignancy Medical History: Reports: None GI Medical History: Reports: None Musculoskeltal Medical History: Reports None Skin Medical History: Reports Hx Eczema Psychiatric Medical History: Reports: None Traumatic Medical History: Reports: None Infectious Medical History: Reports: None Past Surgical History: Reports: Hx Oral Surgery - wisdom teeth - Immunizations Immunizations up to date: No Hx Diphtheria, Pertussis, Tetanus Vaccination: No Review of Systems - Review of Systems Constitutional: No symptoms reported EENT: Mouth pain, Mouth swelling, Dental problem Cardiovascular: No symptoms reported Respiratory: No symptoms reported Gastrointestinal: No symptoms reported Genitourinary: No symptoms reported Female Genitourinary: No symptoms reported Musculoskeletal: No symptoms reported Skin: No symptoms reported Hematologic/Lymphatic: No symptoms reported Neurological/Psychological: No symptoms reported -: Yes All other systems reviewed and negative Physical Exam - Vital signs Vitals: Temp Pulse Resp BP Pulse Ox 98.7 F 75 18 132/88 H 99 09/01/20 10:01 09/01/20 10:01 09/01/20 10:01 09/01/20 10:01 09/01/20 10:01 Interpretation: Normal - General General appearance: Appears well, Alert - HEENT Head: Normocephalic, Atraumatic Eyes: Normal Pupils: PERRL Ears: Normal External canal: Normal Tympanic membrane: Normal Sinus: Normal Nasal: Normal Mouth/Lips: Caries, Other - Swelling to the lower lip Mucous membranes: Normal Teeth diagram: 1 - Teeth very crooked 2 - Clearly out of alignment 3 - Swelling around the gums Pharynx: Erythema Neck: Normal - Respiratory Respiratory status: No respiratory distress Chest status: Nontender Breath sounds: Normal Chest palpation: Normal - Cardiovascular Rhythm: Regular Heart sounds: Normal auscultation Murmur: No - Abdominal Inspection: Normal Distension: No distension Bowel sounds: Normal Tenderness: Nontender Organomegaly: No organomegaly - Back Back: Normal, Nontender - Extremities General upper extremity: Normal inspection, Nontender, Normal color, Normal ROM, Normal temperature General lower extremity: Normal inspection, Nontender, Normal color, Normal ROM, Normal temperature, Normal weight bearing. No: Alexander's sign - Neurological Neuro grossly intact: Yes Cognition: Normal Orientation: AAOx4 Jazlyn Coma Scale Eye Opening: Spontaneous [place] Coma Scale Verbal: Oriented [place] Coma Scale Motor: Obeys Commands Jazlyn Coma Scale Total: 15 Speech: Normal Motor strength normal: LUE, RUE, LLE, RLE Sensory: Normal - Psychological Associated symptoms: Normal affect, Normal mood - Skin Skin Temperature: Warm Skin Moisture: Dry Skin Color: Normal Course - Re-evaluation Re-evalutation: 09/01/20 10:[address] Mccann for this patient. He did come and examine the patient he recommended clindamycin and ibuprofen. I did give patient instructions concerning clindamycin salt and soda gargles and ibuprofen. I have recommended she go to the dentist as soon as possible. I did give her the name and number of the dentist as well as an oral surgeon in case that is what she requires. Patient verbalized understanding and agreement treatment plan patient was dis charged home. - Vital Signs Vital signs: Temp Pulse Resp BP Pulse Ox 98.7 F 75 18 132/88 H 99 09/01/20 10:01 09/01/20 10:01 09/01/20 10:01 09/01/20 10:09/01/20 10:01 Doctor's Discharge - Discharge Clinical Impression: Pain due to dental caries, Swollen lower lip, Dental malalignment Condition: Stable Disposition: HOME, SELF-CARE Additional Instructions: TOOTHACHE: Your pain is due to dental decay. The tooth must be repaired in order for you to feel better. You will, therefore, be referred to a dentist. We do not have dentists on the staff at [facility]. Severe swelling or drainage around a tooth usually means a dental abscess. This also requires evaluation and treatment by the dentist, but antibiotics may be prescribed while awaiting dental treatment. You should be rechecked immediately if you develop major swelling of the face, increasing pain, a lump in the jaw or gums, headache, difficulty swallowing, or fever. Also have swelling to the lower lip. According to the doctor that I consulted he thought that this may be cellulitis which is an infection caused by the your dental problems. It is very important that you follow-up with a dentist as soon as possible. CLINDAMYCIN: You have been given a prescription for the antibiotic clindamycin. It is often prescribed for infections in the mouth, such as dental infections or a bscesses, and for skin infections due to MRSA. It's important that you take all the medication, unless instructed otherwise by your physician. Failure to complete the entire course can result in relapse of your condition. Common side effects of antibiotics include nausea, intestinal cramping, or diarrhea. Women may develop vaginal yeast infections, and babies can get yeast (thrush) in the mouth following the use of antibiotics. Contact your physician if you develop significant side effects from this medication. Allergy to this antibiotic can result in hives, wheezing, faintness, or itching. If symptoms of allergy occur, stop the medication and call the doctor. Salt and soda solution gargle 1 quart of water 1 tablespoon of salt 1 teaspoon of baking soda Mixed 3 ingredients together and boil for 1 minute Placed in a covered quart jar Use 1/2 ounce of cold solution to gargle 3 times a day Ibuprofen Ibuprofen is an excellent, safe drug for pain control. In addition, it has potent antiinflammatory effects which are beneficial, especially in the treatme nt of injuries, arthritis, or tendonitis. It's best to take ibuprofen with food. Persons with ulcer disease or allergy to aspirin should notify their physician of this before taking ibuprofen. Take the medication exactly as prescribed. Don't take additional doses unless instructed to do so by your doctor. If you develop wheezing, shortness of breath, hives, faintness, stomach pain, vomiting, or dark black stools, return for re-evaluation at once. FOLLOW-UP CARE: You have been referred for follow-up care to the dentists listed below. Call the dentists office for an appointment as you were instructed or within the next two days. If you experience worsening or a significant change in your symptoms, notify the physician immediately or return to the Emergency Department at any time for re-evaluation. [facility] [address] [place] [address] [facility] [place] [address] [facility] [address] [facility] (4th) [facility] [address] [email or web address] [place] [address] [place] [address] Wednesday- 8:00am to 5:00 pm Will see patients from other [facility]. Charges based on income and family size and accepts Medicare, Medicaid, and Insurances Will pull molars [facility] [id number] Hours of Operation 8:00 am - 4:30 pm weekdays The following dental offices accept Medicaid: [facility] Dr. Gan Dr. Petersen Dr. Harp Dr. Anna Damien Soni, Aung, and [place] oral surgery Dr. Bray ([place]) Dr. Whiting ([place]) [facility] Drs. Ngo ([place]) Dr. Layne ([place]) [facility] Dr. Beyer ([place]) Drs. Lucio and ([place]) Medicaid Care Line Prescriptions: Clindamycin HCl 300 mg PO Q6 #40 capsule Forms: Elevated Blood Pressure Referrals: [facility] [ACTIVE STAFF] - Follow up as needed
--- NOTE | 2020-09-01 11:16 | ER Document Report ---
Doctor's Note Notes: 09/01/20 11:12 Requested to consult and examined patient input 1. Patient has been seen at another clinic urgent care regarding lower lip swelling. Patient was placed on antihistamines x2 and now a week later she still has no improvement in her lower lip swelling. The question that is in front of us is whether or not this is an allergic reaction or angioedema or some sort of infection. Patient does have some gingival swelling just underneath the lower lip on the left side patient's alveolar ridge is irregular with teeth in many different positions along that area Cathy region on the left where this swelling is noted. Most likely this is not an allergic reaction and most likely is an infection. MRSA is a common cause of lower lip swelling therefore we are going to treat patient with MRSA antibiotic coverage and ibuprofen as needed for pain and swelling. Recommend a choice was clindamycin. 09/01/20 11:14 Vital signs stable. No acute distress. No evidence for posterior oropharyngeal swelling no stridor , no tongue swelling.
== END 2020-09-01 10:25 | disposition home or self-care (01) ==
LOC: ER 09:42
DX: K02.9 Dental caries, unspecified (principal); R22.0 Localized swelling, mass and lump, head; K08.89 Other specified disorders of teeth and supporting structures
CPT/HCPCS: 99283

== ENCOUNTER 2020-11-15 06:27 | Emergency (ER) | payer OTHER ==
--- NOTE | 2020-11-15 08:19 | ER Document Report ---
ED General - General Chief Complaint: Nausea/Vomiting/Diarrhea Stated Complaint: NAUSEA,VOMITING,BODY ACHES Time Seen by Provider: 11/15/20 08:17 Primary Care Provider: FEI ROQUE PA-C [Primary Care Provider] - Follow up in 1 week TRAVEL OUTSIDE OF THE [place] IN LAST 30 DAYS: No - HPI Notes: 30-year-old female to the emergency department with complaints of acute onset nausea, vomiting, diarrhea that began this morning. She also reports body aches. Denies any fevers, sore throat, headache, cough, loss of smell or taste. [place] is not sure if she has had a possible Covid exposure. She denies anybody else around her that has had the same symptoms. She states that she has vomited several times and then had 4 episodes of watery diarrhea. Admits that she was on Cipro about 4 weeks ago. Denies any travel or diet change. She is unsure if she might be . Denies any abdominal painstates that her abdomen feels unsettled and churning. - Related Data Allergies/Adverse Reactions: Shellfish * [Shellfish] Allergy (Intermediate, Verified 03/01/19 18:15) swelling Sulfa (Sulfonamide Antibiotics) Allergy (Verified 11/15/20 07:08) Home Medications: control. albuterol inhaler PRN Past Medical History - General Information source: Patient - Social History Smoking Status: Never Smoker Frequency of alcohol use: Rare Drug Abuse: None Family History: Reviewed & Not Pertinent, Arthritis, Hypertension, Malignancy Pulmonary Medical History: Reports: Hx Asthma, Hx Bronchitis, Hx Pneumonia Neurological Medical History: Reports: Hx Migraine Renal/ Medical History: Denies: Hx Peritoneal Dialysis Skin Medical History: Reports Hx Eczema Past Surgical History: Reports: Hx Oral Surgery - wisdom teeth - Immunizations Immunizations up to date: No Hx Diphtheria, Pertussis, Tetanus Vaccination: No Review of Systems - Review of Systems Constitutional: denies: Chills, Fever EENT: No symptoms reported Cardiovascular: denies: Chest pain, Palpitations, Dizziness, Lightheaded Respiratory: denies: Cough, Short of breath Gastrointestinal: Diarrhea, Nausea, Vomiting Genitourinary: No symptoms reported Female Genitourinary: No symptoms reported Musculoskeletal: Muscle pain - body aches Skin: No symptoms reported Hematologic/Lymphatic: No symptoms reported Neurological/Psychological: No symptoms reported -: Yes All other systems reviewed and negative Physical Exam - Vital signs Vitals: Temp Pulse Resp BP Pulse Ox 97.5 F 74 18 150/84 H 100 11/15/20 06:38 11/15/20 06:38 11/15/20 06:38 11/15/20 06:38 11/15/20 06:38 Interpretation: Normal - Notes Notes: PHYSICAL EXAMINATION: GENERAL: Well-appearing, well-nourished and in no acute distress. HEAD: Atraumatic, normocephalic. EYES: Pupils equal round and reactive to light, extraocular movements intact, sclera anicteric, conjunctiva are normal. ENT: nares patent, oropharynx clear without exudates. Moist mucous membranes. NECK: Normal range of motion, supple without lymphadenopathy LUNGS: Breath sounds clear to auscultation bilaterally and equal. No wheezes rales or rhonchi. HEART: Regular rate and rhythm without murmurs ABDOMEN: Soft, nontender, obese, normoactive bowel sounds. No guarding, no rebound. No masses appreciated. negative McBurney's point, negative Bacon's sign EXTREMITIES: Normal range of motion, no pitting or edema. No cyanosis. NEUROLOGICAL: No focal neurological deficits. Moves all extremities spontaneous ly and on command. PSYCH: Normal mood, normal affect. SKIN: Warm, Dry, normal turgor, no rashes or lesions noted. Course - Re-evaluation Re-evalutation: 11/15/20 Patient significantly improved since Toradol and Zofran. Noted lab work which is very reassuring. She has a nontender abdomen. Plan will be to discharge home. She will quarantine until she has further information about her Covid test. She is to return if she has any worsening symptoms. Patient agrees with the plan. - Vital Signs Vital signs: Temp Pulse Resp BP Pulse Ox 98.4 F 69 16 143/96 H 100 11/15/20 11:18 11/15/20 11:18 11/15/20 11:18 11/15/20 11:18 11/15/20 11:18 - Laboratory Results Result Diagrams: 11/15/20 08:05 11/15/20 08:05 Laboratory Results Interpreted: 11/15/20 11/15/20 11/15/20 08:05 08:05 08:05 WBC 11.6 H RBC 5.44 H MCH 26.4 L RDW 15.0 H Plt Count 482 H Lymph % (Auto) 11.2 L Absolute Neuts (auto) 9.8 H Seg Neutrophils % 84.4 H ALT 36 H Urine Protein 30 H Urine Ketones TRACE H Critical Laboratory Results Reviewed: No Critical Results - Radiology Results Critical Radiology Results Reviewed: No Critical Results Discharge - Discharge Clinical Impression: Nausea vomiting and diarrhea, Generalized body aches, Encounter for laboratory testing for COVID-19 virus Condition: Stable Disposition: HOME, SELF-CARE Instructions: Diarrhea, Nonspecific ([facility]), Vomiting ([facility]) Additional Instructions: Push fluids. Return if worsening symptoms such as intractable vomiting, blood in your vomit or diarrhea, worsening pain. Take medicine for nausea as prescribed. Please quarantine at home until further results for your Covid testing is back. As a person under investigation for COVID-19, [facility], division of public health advises you to adhere to the following guidance until your test results are reported to you. If your test result is positive, you will receive additional information from your provider and your local health department at that time. Remain at home until you are cleared by the healthcare provider public health authorities. Keep a log of visitors to your home and notify any visitors to your home of your isolation status. If you plan to move to a new address or leave the country, notify the local health department and your County. Call your doctor or seek care if you have an urgent medical need. Before seeking medical care, call ahead to get instructions from the provider before arriving at the medical office, clinic, or hospital. Notify them that you are being tested for the virus that causes COVID-19 so that arrangements can be made, as necessary, to prevent transmission to others in the healthcare setting. Next, notify the local health department and your County. If a medical emergency arises and you need to call 911, informed the first responders that you are being tested for the virus that causes COVID-19. Next, notified the [facility] health department and your County. Prescriptions: Naproxen [Naprosyn 375 Mg Tablet] 375 mg PO BID #20 tablet Ondansetron [Zofran Odt 4 mg Tablet] 1 - 2 tab PO Q4H PRN #15 tab.rapdis PRN Reason: For Nausea/Vomiting Forms: Return to Work Referrals: FEI ROQUE PA-C [Primary Care Provider] - Follow up in 1 week
[2020-11-15 08:22] LABS: ABSOLUTE BASOPHILS # (AUTO) 0.1 10^3/uL (0.0-0.2); ABSOLUTE EOSINOPHILS # (AUTO) 0.1 10^3/uL (0.0-0.6); ABSOLUTE LYMPHOCYTES (AUTO) 1.3 10^3/uL (0.5-4.7); ABSOLUTE MONOCYTES (AUTO) 0.3 10^3/uL (0.1-1.4); ABSOLUTE NEUT (AUTO) 9.8 10^3/uL (1.7-8.2); BASOPHILS % (AUTO) 0.9 % (0-2); EOSINOPHILS % (AUTO) 0.5 % (0-6); HEMATOCRIT 44.3 % (36.0-47.0); HEMOGLOBIN 14.4 g/dL (12.0-15.5); LYMPHOCYTES % (AUTO) 11.2 % (13-45); MEAN CORPUSCULAR HEMOGLOBIN 26.4 pg (27.0-33.4); MEAN CORPUSCULAR HGB CONC 32.4 g/dL (32.0-36.0); MEAN CORPUSCULAR VOLUME 81 fl (80-97); PLATELET COUNT 482 10^3/uL (150-450); RED BLOOD COUNT 5.44 10^6/uL (3.72-5.28); SEGMENTED NEUTROPHILS % (AUTO) 84.4 % (42-78); TOTAL CELLS COUNTED % (AUTO) 100 %; WHITE BLOOD COUNT 11.6 10^3/uL (4.0-10.5)
[2020-11-15] MEDS ORDERED: NORMAL SALINE 500 ML IV ONE (08:36)
[2020-11-15] MEDS ORDERED: ONDANSETRON HCL INJ/PF 4 MG/2 ML SDV IV ONE (08:36)
[2020-11-15 08:38] LABS: APPEARANCE,URINE SLIGHTLY-CLOUDY; BILIRUBIN,URINE NEGATIVE (NEGATIVE); COLOR,URINE YELLOW; GLUCOSE, URINE NEGATIVE (NEGATIVE); KETONES,URINE TRACE mg/dL (NEGATIVE); LEUKOCYTE ESTERASE,URINE NEGATIVE (NEGATIVE); NITRITE,URINE NEGATIVE (NEGATIVE); PROTEIN,URINE 30 mg/dL (NEGATIVE); URINE SPECIFIC GRAVITY 1.018; UROBILINOGEN,URINE NEGATIVE mg/dL (<2.0)
[2020-11-15 08:45] LABS: ALBUMIN 4.4 g/dL (3.5-5.0); ALKALINE PHOSPHATASE 58 U/L (38-126); ANION GAP 9 (5-19); ASPARTATE AMINO TRANSFERASE 35 U/L (14-36); BILIRUBIN,DIRECT 0.2 mg/dL (0.0-0.4); BILIRUBIN,TOTAL 0.7 mg/dL (0.2-1.3); BLOOD UREA NITROGEN 9 mg/dL (7-20); CARBON DIOXIDE 27 mmol/L (22-30); CHLORIDE 106 mmol/L (98-107); GLUCOSE 100 mg/dL (75-110); TOTAL PROTEIN 8.1 g/dL (6.3-8.2)
[2020-11-15] MEDS ORDERED: KETOROLAC TROMETHAMINE INJ/PF 30 MG/1 ML SDV IV ONE (10:49)
[2020-11-15 10:56] LABS: A TYPE INFLUENZA AG NEGATIVE (NEGATIVE); B INFLUENZA AG NEGATIVE (NEGATIVE)
[2020-11-15 11:19] VITALS: BP 143/96
== END 2020-11-15 11:19 | disposition home or self-care (01) ==
LOC: ER 06:27
DX: R11.2 Nausea with vomiting, unspecified (principal); R19.7 Diarrhea, unspecified; M79.10 Myalgia, unspecified site; Z20.828 Contact with and (suspected) exposure to other viral communicable diseases
CPT/HCPCS: 99284; 96361; 96374; 96375; 36415; 83690; 85025; 87635; 81025; 80053; 81001; 87804; J1885; J2405; J7040; C9803